=== PATIENT | female | born 2000 | race Caucasian/White ===

== ENCOUNTER 2019-02-05 15:52 | Emergency (ER) | payer SELFPAY ==
[~2019-02-05] VITALS: Ht 170.2 cm; Wt 75.5 kg
[2019-02-05 15:55] VITALS: BP 133/83; TEMP 98.3
[2019-02-05] MEDS ORDERED: LEXAPRO20 MG PO (15:59)
[2019-02-05] MEDS ORDERED: CLEOCIN HCL300 MG PO (16:19)
[2019-02-05 16:41] VITALS: PULSE 85
== END 2019-02-05 16:41 | disposition home or self-care (01) ==
LOC: COL.ER 15:52
DX: K02.9 Dental caries, unspecified (principal); Z88.0 Allergy status to penicillin

== ENCOUNTER 2019-04-05 11:02 | Emergency (ER) | payer SELFPAY ==
[~2019-04-05] VITALS: Ht 170.2 cm; Wt 79.5 kg
[~2019-04-05 11:02] MED LIST: CLEOCIN HCL300 MG PO; LEXAPRO20 MG PO
[2019-04-05 11:19] VITALS: BP 116/71
[2019-04-05] MEDS ORDERED: PREDNISONE20 MG PO (13:46)
[2019-04-05] MEDS ORDERED: ZITHROMAX Z PA250 MG PO (13:46)
[2019-04-05 13:48] VITALS: PULSE 88; TEMP 98
== END 2019-04-05 13:56 | disposition home or self-care (01) ==
LOC: COL.ER 11:02
DX: J40 Bronchitis, not specified as acute or chronic (principal); F17.210 Nicotine dependence, cigarettes, uncomplicated; Z88.0 Allergy status to penicillin

== ENCOUNTER → 2019-06-26 | Outpatient (CLI) | payer SELFPAY ==
[~2019-06-26] MED LIST changes: +PREDNISONE20 MG PO; +ZITHROMAX Z PA250 MG PO
[2019-06-26 12:58] LABS: ALBUMIN 4.7 gm/dL (3.5-5.0); BILIRUBIN,TOTAL 0.4 mg/dL (0.0-1.0); CALCIUM 9.8 mg/dL (8.4-10.2); CREATININE, serum 0.68 (0.52-1.25); POTASSIUM 3.9 mmol/L (3.4-5.0); TOTAL PROTEIN 7.8 gm/dL (6.4-8.2)
[2019-06-26 13:28] LABS: THYROID STIMULATING HORMONE 3.33 uIU/mL (0.465-4.680)
== END ==
LOC: COL.LAB 12:09
PROVIDERS: Pediatrics
DX: Z01.89 Encounter for other specified special examinations (principal)

== ENCOUNTER 2020-07-15 19:13 | Emergency (ER) | payer OTHER ==
[~2020-07-15] VITALS: Ht 170.2 cm; Wt 81.8 kg
[2020-07-15 19:25] VITALS: TEMP 98.6
[2020-07-15] MEDS ORDERED: FIORICET 325 MG1 TA1 PO (20:00)
[2020-07-15 20:45] VITALS: BP 128/74; PULSE 74
== END 2020-07-15 20:45 | disposition home or self-care (01) ==
LOC: COL.ER 19:13
DX: K02.9 Dental caries, unspecified (principal); J20.9 Acute bronchitis, unspecified; Z88.0 Allergy status to penicillin
CPT/HCPCS: J1885

== ENCOUNTER 2021-12-18 12:30 | Emergency (ER) | payer BC ==
[~2021-12-18] VITALS: Ht 167.6 cm; Wt 81.8 kg
[~2021-12-18 12:30] MED LIST changes: +FIORICET 325 MG1 TA1 PO
[2021-12-18 13:05] VITALS: BP 152/85; PULSE 82; TEMP 98.9
[2021-12-18] MEDS ORDERED: UBRELVY50 MG PO (13:29)
[2021-12-18] MEDS ORDERED: NORCO 325 MG-51 TAB PO (13:44)
[2021-12-18] MEDS ORDERED: CLEOCIN HCL300 MG PO (13:44)
== END 2021-12-18 13:50 | disposition home or self-care (01) ==
LOC: COL.ER 12:30
DX: K04.7 Periapical abscess without sinus (principal); F17.200 Nicotine dependence, unspecified, uncomplicated; Z88.0 Allergy status to penicillin

== ENCOUNTER 2023-11-16 20:11 | Emergency (ER) | payer OTHER ==
[~2023-11-16] VITALS: Ht 170.2 cm; Wt 83.6 kg
[~2023-11-16 20:11] MED LIST changes: +CEPHALEXIN500 M1 PO; +NORCO 325 MG-51 TAB PO; +UBRELVY50 MG PO
[2023-11-16 20:15] VITALS: TEMP 98.4
[2023-11-16] MEDS ORDERED: NS 1,000 ML IV ONE (21:15)
[2023-11-16] MEDS ORDERED: Pantoprazole 40 MG in NS 10 ML IV ONE (21:15)
[2023-11-16] MEDS ORDERED: Morphine 4 MG/ML VIAL IV ONE (21:15)
[2023-11-16] MEDS ORDERED: Ondansetron 4 MG/2 ML VIAL IV PRN (21:15)
[2023-11-16 22:26] LABS: BASO % 0.2 % (0.0-2.0); EOS # 0.2 K/mm3 (0.0-0.7); EOS % 2.5 % (0.0-4.0); GRAN # 6.5 K/mm3 (1.4-6.5); GRAN % 68.8 % (42.2-75.2); HEMATOCRIT 40.6 % (37.0-47.0); HEMOGLOBIN 13.5 g/dl (12.5-16.0); LYMPH % 20.9 % (20.0-51.0); MEAN CELL VOLUME 93 fl (80.0-100.0); MEAN CORPUSCULAR HEMOGLOBIN 31 pg (27-31); MEAN CORPUSCULAR HGB CONC 33 g/dl (33.0-37.0); MEAN PLATELET VOLUME 12.8 fl (7.4-10.4); MONO # 0.7 K/mm3 (0.1-0.6); MONO % 7.3 % (1.7-9.3); PLATELET COUNT 141 K/mm3 (130-400); RED BLOOD COUNT 4.37 M/mm3 (4.10-5.30); REDCELL DISTRIBUTION WIDTH-CV 12.2 % (11.5-14.5)
[2023-11-16 22:41] LABS: ALBUMIN 4.2 g/dL (3.5-5.0); BILIRUBIN,TOTAL 0.5 mg/dL (0.2-1.2); CALCIUM 9.6 mg/dL (8.4-10.2); CREATININE, serum 0.91 mg/dL (0.57-1.11); POTASSIUM 3.6 mEq/L (3.5-4.5); TOTAL PROTEIN 7.3 g/dl (6.2-8.1)
[2023-11-16] MEDS ORDERED: Iohexol 300 - 100 ML VIAL IV ONE (22:49)
[2023-11-16] MEDS ORDERED: NS 50 ML IV SCH (22:49)
[2023-11-17 00:36] VITALS: BP 108/69; PULSE 60
== END 2023-11-17 00:36 | disposition home or self-care (01) ==
LOC: COL.ER 20:11
PROVIDERS: Personal Emergency Response Attendant
DX: R10.13 Epigastric pain (principal); R10.11 Right upper quadrant pain; K92.0 Hematemesis
CPT/HCPCS: J2270; J2405; J2470; J7030; Q9967

== ENCOUNTER 2024-01-07 02:04 | Emergency (ER) | payer OTHER ==
[~2024-01-07] VITALS: Ht 170.2 cm; Wt 80.5 kg
[2024-01-07 02:21] VITALS: TEMP 98.6
[2024-01-07] MEDS ORDERED: Ketorolac 30 MG/ML VIAL IV ONE (04:30)
[2024-01-07] MEDS ORDERED: NS 1,000 ML IV ONE (04:30)
[2024-01-07] MEDS ORDERED: diphenhydrAMINE 50 MG/ML 1 ML VIAL IV ONE (04:30)
[2024-01-07 05:38] VITALS: BP 134/84; PULSE 73
== END 2024-01-07 05:40 | disposition home or self-care (01) ==
LOC: COL.ER 02:04
DX: R51.9 Headache, unspecified (principal); K92.0 Hematemesis; F17.290 Nicotine dependence, other tobacco product, uncomplicated
CPT/HCPCS: J0780; J1200; J1885; J7030